=== PATIENT | female | born 1975 | race Caucasian/White ===

== ENCOUNTER 2019-10-18 08:35 | Outpatient (CLI) | payer SELFPAY ==
[2019-10-18 09:20] LABS: Basophils % 0.4 %; Eosinophils % 0.2 %; Hematocrit 35.7 % (37.0-47.0); Hemoglobin 12.2 g/dL (11.5-15.3); Lymphocytes # 2.8 10^3/uL (0.8-4.8); Lymphocytes % 31.1 %; Mean Corpuscular HGB Conc 34.2 g/dL (30.0-36.0); Mean Corpuscular Volume 87.7 fL (81-99); Mean Platelet Volume 10.6 fL (7.4-10.4); Monocytes # 0.5 10^3/uL (0.2-0.9); Monocytes % 5.7 %; Neutrophils # 5.6 10^3/uL (1.8-7.7); Neutrophils % 62.4 %; Nucleated Red Blood Cells % 0 %; Platelet Count 267 10^3/cmm (130-400); Red Blood Count 4.07 10^6/uL (4.1-5.3); Red Cell Distribution Width 12.1 % (12.1-15.1)
--- NOTE | 2019-10-21 11:34 | ONC FU_ITS ---
Dr. Rosario Patient Follow-Up Note Patient: Willi Saldana Unit #: [id number]: 1975 Dicatated By: Marlon Rosario M.D.Date of Visit:Oct 18, 2019 Onc Med Follow-up/Prog Note Chief Complaint: Deep vein thrombosis. History of Present Illness: This is a 44 year-old woman with deep vein thrombosis of the right leg. On 05/29/2019 she had presented to the emergency room with pain and swelling in her right leg. Venous Doppler showed features of deep vein thrombosis involving the right popliteal and peroneal veins with subtotal occlusion. Also noted were features of thrombosis, felt to be possibly acute, involving segments of the greater saphenous vein both above and below the knee with extension into the saphenofemoral junction. She was treated with a apixaban 10 mg twice a day for 7 days followed by 5 mg twice a day. I had seen her initially on 07/09/2019. The swelling in the right leg had improved, though she still had some pain and aching in the leg. She complained of being more fatigued since she was taking the apixaban, and she also had been having more frequent migraine headaches. She had no bleeding manifestations other than some hemorrhoidal bleeding, which wasn't new. She indicated that she had been taking an oral contraceptive for the preceding 10 years, and that 3 months prior to the episode it had been changed to a different preparation. The oral contraceptive was stopped at the diagnosis of the deep vein thrombosis. She had additional risk factor of a 26-year history of smoking, previously a pack of cigarettes or more per day. She had cut down to less than 1/2 pack per day. She has no prior history of thromboembolism. Her had a significant family history in that a sister had with pulmonary embolism. Her thrombophilia evaluation showed normal ATIII activity and normal protein C and S levels. A study for APC resistance was requested, but apparently not performed. Her anticardiolipin antibodies were negative. Her prothrombin gene mutation analysis showed one copy of the 54235A>G variant, which has been reported to carry an increased risk of thrombosis when observed in conjuction with the 33028W>A FII variant. Her other medical illnesses include hypothyroidism and fibromyalgia. She has a history of hypoglycemia, a hstory of diverticulitis, and a history of C. difficile colitis. She has anxiety/depression. She has cut down her smoking. She is seen for a followup visit. She continues to complain that she is super tired. She is working part-time. She still has some pain and aching in her right leg. She has been having a little more hemorrhoidal bleeding. She does not complain of shortness of breath. She sometimes has chest pain. She has been having more frequent migraines headaches. She says her nervres are shot. Medications: Calcium 1 Tablet (of 500 mg) Oral daily, Cholecalciferol 1 Tablet (of 88006 Units) Oral daily, Eliquis 1 Tablet (of 5 mg) Oral b.i.d., EQL Fish Oil 1 Capsule (of 1000 mg) Oral daily, Garlic 1 Capsule (of 1000 mg) Oral daily, Levothyroxine Sodium 1 Tablet (of 125 mcg) Oral daily, L-Lysine 1 Tablet (of 500 mg) Oral daily, lobelia 2 Drop(s) Liquid PRN, lomatium 28 Drop(s) Liquid Oral daily, Magnesium 1 Tablet (of 500 mg) Oral daily, Meloxicam 1 Tablet (of 15 mg) Oral daily, Multivitamin Adults 1 Tablet Oral daily, Potassium 1 Tablet (of 99 mg) Oral daily, primrose oil 1 Capsule Oral daily, Probiotic 1 Capsule Oral, Sertraline HCl 1 Tablet (of 50 mg) Oral daily, Vitamin A 1 Capsule (of 500 Units) Oral daily, Vitamin B12 2 Capsule (of 500 mg) Oral daily Allergies: Biaxin and Lidocaine HCl. Review of Systems: Constitutional - She has been feeling super tired. She has good appetite. She has not had fever or night sweating. She feels cold. ECOG score is 1, ENMT - No sinus congestion/drainage. No mouth sores. No sore throat or difficulty swallowing, Hematologic/Lymphatic - No abnormal bruising, Respiratory - She does not complain of shortness of breath. She has just very occasional cough. No hemoptysis, Cardiovascular - She sometimes has chest pain. No palpitations, Gastrointestinal - She has nausea and she has acid reflux. No diarrhea or constipation. She has been having a little more bleeding from hemorrhoids, Genitourinary (F) - No dysuria or hematuria. No urinary frequency. She sometimes has has hesitancy with urination. She sometimes has urgency, Musculoskeletal - She sometimes has pain in her arms, Integumentary - No skin rash or other skin changes, Neurologic - She has been having more migraine headaches. She sometimes has dizziness. She has numbness/tingilng in her feet, Psychiatric - She has anxiety/depression. She says her nerves are shot. She has difficulty sleeping. Vital Signs: Performed on Oct 18, 2019 09:29 Height - 65.00 in Weight - 222.4 lbs (HIGH) BSA - 2.07 sq.m BMI - 37.01 (HIGH) Temperature - 97.5 F (LOW) Pulse - 78 /min Respiration - 24 /min BP - 148/86 mm(hg) (HIGH) O2 Sat - 99 % Pain - 8 Physical Examination: Constitutional - She looks pretty good generally, Eyes - Sclerae nonicteric. Conjunctivae clear, ENMT - No lesions noted in the oral cavity, Hematologic/Lymphatic - No cervical, clavicular, or axillary adenopathy, Respiratory - Lungs sound clear, Cardiovascular - Heart rhythm is regular. There is a I/ systolic murmur. There is no gallop or rub noted, Abdomen - Mildly distended and generally tender, but soft. Liver and spleen are not enlarged. There is no abdominal mass or ascites noted and there is no inguinal adenopathy, Extremities - No edema. Calves appear symmttric and they feel soft, Neurologic - No focal neurologic deficits noted. Lab/Imaging: Test performed on Oct 18, 2019 08:45 WBC 9.0 10 3/uL RBC 4.07 10 6/uL HGB 12.2 g/dL HCT 35.7 % MCV 87.7 fL MCH 30.0 pg MCHC 34.2 g/dL RDW 12.1 % Platelet Count 267 10 3/cmm MPV 10.6 fL Neutrophils 5.6 10 3/uL Lymphocytes 2.8 10 3/uL Monocytes 0.5 10 3/uL Eosinophils 0.0 10 3/uL Basophils 0.0 10 3/uL Neutrophil % 62.4 % Lymphocyte % 31.1 % Monocyte % 5.7 % Eosinophil % 0.2 % Basophils % 0.4 % Impression: 1. Patient with acute deep vein thrombosis of the right leg diagnosed in May 2019. This was considered a provoked DVT, as it occurred in association with oral contraceptive use. She had additional risk factor of smoking. 2. She had clinical improvement on treatment with apixaban. 3. She has a positive family history for thromboembolism. Her other medical illnesses include: 4. Hypothyroidism. 5. Hypoglycemia. 6. Fibromyalgia. 7. She has a history of diverticulitis. 8. She has a history of Clostridium difficile colitis. 9. Anxiety/depression. Her thrombophilia evaluation was unrevealing except for the prothrombin gene mutation analysis which showed one copy of the 46398M>G variant. It has been reported to carry an increased risk of thrombosis when observed in conjuction with the 26592X>A FII variant, but it is not by itself a known thrombophilia risk. An APC resistance study was requested, but apparently not performed. Plan: She is recommended to complete 6 months of anticoagulation with full-dose apixaban. I will see her again in 1 month with a repeat venous Doppler, and we will determine at that time whether to stop anticoagulation completely or transition to a maintenance dosage. The APC resistance study will need to be done, and if positive she will need to be tested for the factor V Leiden mutation. Signed By: Marlon Rosario M.D. <<Signature on File>>
== END 2019-10-18 08:36 | disposition home or self-care (01) ==
LOC: ONCMED 08:37
PROVIDERS: Family Provider Family Medicine; PCP Family Medicine; Visit Provider Internal Medicine Medical Oncology
DX: I82.401 Acute embolism and thrombosis of unspecified deep veins of right lower extremity (principal); E03.9 Hypothyroidism, unspecified; M79.7 Fibromyalgia; F41.8 Other specified anxiety disorders; F17.210 Nicotine dependence, cigarettes, uncomplicated; K64.8 Other hemorrhoids; G43.909 Migraine, unspecified, not intractable, without status migrainosus; E16.2 Hypoglycemia, unspecified; Z79.01 Long term (current) use of anticoagulants; Z79.899 Other long term (current) drug therapy
CPT/HCPCS: 85025; 99214

== ENCOUNTER 2019-10-24 14:13 | Outpatient (CLI) | payer SELFPAY | END 2019-10-24 14:14 | disposition home or self-care (01) | LOC: ONCMED 14:14 | PROVIDERS: Family Provider Family Medicine; PCP Family Medicine; Visit Provider Internal Medicine Medical Oncology | DX: Z01.89 Encounter for other specified special examinations (principal) ==

== ENCOUNTER 2019-11-04 15:48 | Outpatient (CLI) | payer SELFPAY | END 2019-11-04 15:49 | disposition home or self-care (01) | LOC: ONCMED 15:49 | PROVIDERS: Family Provider Family Medicine; PCP Family Medicine; Visit Provider Internal Medicine Medical Oncology | DX: D68.51 Activated protein C resistance (principal) | CPT/HCPCS: 36415; 81241 ==

== ENCOUNTER 2019-11-21 14:47 | Outpatient (CLI) | payer SELFPAY ==
--- NOTE | 2019-11-21 15:00 | USCV_ITS ---
Willi Saldana Age: 44 Gender: F : 1975 Exam Date: 11/21/2019 14:55 Ordering Phys: Marlon Rosario MD Technologist: Nereyda Marsh Exam Location: [facility] – [place] Indication: right leg pain HISTORY: Lower extremity pain. PROCEDURES: Examined bilaterally were the greater saphenous, common femoral, femoral, profunda, popliteal, posterior tibial veins, and peroneal trunk. FINDINGS: Persistent SVT noted in the GSV at area. No DVT in any vessel visualized at this time. CONCLUSIONS Persistent SVT in the GSV at [facility] in mid thigh No DVT RLLibra Hester MD (Electronically Signed) Final Date: 21 November 2019 16:07 Amended: 22 November 2019 16:44 C
== END 2019-11-21 14:48 | disposition home or self-care (01) ==
LOC: ONCMED 14:48
PROVIDERS: Family Provider Family Medicine; PCP Family Medicine; Visit Provider Internal Medicine Medical Oncology
DX: M79.604 Pain in right leg (principal); Z86.718 Personal history of other venous thrombosis and embolism
CPT/HCPCS: 93971

== ENCOUNTER 2020-02-28 09:20 | Outpatient (CLI) | payer SELFPAY ==
--- NOTE | 2020-02-28 18:52 | ONC FU_ITS ---
Dr. Rosario Patient Follow-Up Note Patient: Willi Saldana Unit #: [id number]: 1975 Dicatated By: Marlon Rosario M.D.Date of Visit:Feb 28, 2020 Onc Med Follow-up/Prog Note Chief Complaint: Deep vein thrombosis. History of Present Illness: This is a 44 year-old woman with deep vein thrombosis of the right leg. She was found to be heterozygous for the factor V Leiden mutation. On 05/29/2019 she had presented to the emergency room with pain and swelling in her right leg. Venous Doppler showed features of deep vein thrombosis involving the right popliteal and peroneal veins with subtotal occlusion. Also noted were features of thrombosis, felt to be possibly acute, involving segments of the greater saphenous vein both above and below the knee with extension into the saphenofemoral junction. She was treated with a apixaban 10 mg twice a day for 7 days followed by 5 mg twice a day. I had seen her initially on 07/09/2019. The swelling in the right leg had improved, though she still had some pain and aching in the leg. She complained of being more fatigued since she was taking the apixaban, and she also had been having more frequent migraine headaches. She had no bleeding manifestations other than some hemorrhoidal bleeding, which wasn't new. She indicated that she had been taking an oral contraceptive for the preceding 10 years, and that 3 months prior to the episode it had been changed to a different preparation. The oral contraceptive was stopped at the diagnosis of the deep vein thrombosis. She had additional risk factor of a 26-year history of smoking, previously a pack of cigarettes or more per day. She had cut down to less than 1/2 pack per day. She has no prior history of thromboembolism. Her had a significant family history in that a sister had with pulmonary embolism. Her thrombophilia evaluation showed normal ATIII activity and normal protein C and S levels. A study for APC resistance was requested, but apparently not performed. Her anticardiolipin antibodies were negative. Her prothrombin gene mutation analysis showed one copy of the 94235I>G variant, which has been reported to carry an increased risk of thrombosis when observed in conjuction with the 53244K>A FII variant. As the APC resistance study was not performed, I went ahead and requested a factor V Leiden mutation study, which was positive for one copy of the factor V Leiden variant. With that finding, I had recommended that she consider long-term or than short-term anticoagulation. Her other medical illnesses include hypothyroidism and fibromyalgia. She has a history of hypoglycemia, a hstory of diverticulitis, and a history of C. difficile colitis. She has anxiety/depression. She had cut down her smoking. INTERIM HISTORY: During follow-up she began having side effects with the apixaban at the 5 mg dosage. Her anticoagulation was then transition to rivaroxaban, which she also had multiple side effects. She then went back to apixaban, and just less than 1 month ago she began a trial of therapy with dabigatran. She is seen for a follow-up visit. She is had multiple side effects attributable to dabigatran, including fatigue and headache. She says she just has not been feeling good generally. She is still able to do some light work. Her appetite is not as good, but her weight is stable. She has not had fever. She does have hot flashes and sweating. She does not complain of shortness of breath, cough, or chest pain. She has been having nausea and she has been having a lot of acid reflux since she has been on the dabigatran. She has diarrhea intermittently. Her bladder function has not been very good, she sometimes has difficulty voiding. She has been having more pain and she also complains of having muscle cramps in her legs. She has numbness in her feet. Medications: Calcium 1 Tablet (of 500 mg) Oral daily, Cholecalciferol 1 Tablet (of 83284 Units) Oral daily, EQL Fish Oil 1 Capsule (of 1000 mg) Oral daily, Garlic 1 Capsule (of 1000 mg) Oral daily, Levothyroxine Sodium 1 Tablet (of 125 mcg) Oral daily, L-Lysine 1 Tablet (of 500 mg) Oral daily, lobelia 2 Drop(s) Liquid PRN, lomatium 28 Drop(s) Liquid Oral daily, Magnesium 1 Tablet (of 500 mg) Oral daily, Meloxicam 1 Tablet (of 15 mg) Oral daily, Multivitamin Adults 1 Tablet Oral daily, Potassium 1 Tablet (of 99 mg) Oral daily, primrose oil 1 Capsule Oral daily, Probiotic 1 Capsule Oral, Sertraline HCl 1 Tablet (of 50 mg) Oral daily, Vitamin A 1 Capsule (of 500 Units) Oral daily, Vitamin B12 2 Capsule (of 500 mg) Oral daily Allergies: Biaxin, Lidocaine HCl, and Xarelto. Review of Systems: Constitutional - She has fatigue, but she is able to do light work. Appetite is not so good. Her weight is stable. No fever. She has hot flashes and sweating. ECOG score is 1, ENMT - She has a little bit of sinus drainage. No mouth sores. No sore throat or difficulty swallowing, Hematologic/Lymphatic - No abnormal bruising or bleeding, Respiratory - No shortness of breath. No cough. No pleuritic pain or hemoptysis, Cardiovascular - No angina pain. No palpitations, Gastrointestinal - She has nausea and she has a lot of acid reflux. She has diarrhea. No blood in the stool or black stools, Genitourinary (F) - She sometimes has difficutly voiding. No dysuria or hematuria. No urinary frequency. No urgency or incontinence, Musculoskeletal - She has more pain. She has been having muscle cramps in her legs, Integumentary - No skin rash, Neurologic - She has been having headaches and she has dizziness. She has numbness in her feet. No other focal neurologic symptoms, Psychiatric - She has anxiety/depression. No insomnia. Vital Signs: Performed on Feb 28, 2020 09:46 Height - 65.00 in Weight - 225.6 lbs (HIGH) BSA - 2.08 sq.m BMI - 37.54 (HIGH) Temperature - 97.4 F (LOW) Pulse - 71 /min Respiration - 24 /min BP - 143/90 mm(hg) (HIGH) O2 Sat - 98 % Pain - 7 Physical Examination: Constitutional - She looks pretty good generally, Eyes - Sclerae nonicteric. Conjunctivae clear, ENMT - No lesions noted in the oral cavity, Hematologic/Lymphatic - No cervical, clavicular, or axillary adenopathy, Respiratory - Lungs sound clear, Cardiovascular - Heart rhythm is regular. There is no murmur,gallop, or rub noted, Abdomen - Soft. Liver and spleen are not enlarged. There is no abdominal mass or ascites noted and there is no inguinal adenopathy, Extremities - No edema, Neurologic - No focal neurologic deficits noted. Impression: 1. Patient with acute deep vein thrombosis of the right leg diagnosed in May 2019. This was considered a provoked DVT, as it occurred in association with oral contraceptive use. 2. Her thrombophilia evaluation showed heterozygosity for the factor V Leiden mutation. Her other medical illnesses include: 3. Hypothyroidism. 4. Hypoglycemia. 5. Fibromyalgia. 6. She has a history of diverticulitis. 7. She has a history of Clostridium difficile colitis. 8. Anxiety/depression. With the thrombophilia evaluation showing heterozygosity for the factor V Leiden mutation, she was recommended to consider long-term rather than short-term anticoagulation. The main issue is that she has had difficulty tolerating the medications, including apixaban, rivaroxaban, and more recently dabigatran. There has been no evidence, though, for any further thromboembolism. Plan: I discussed several options for her further management. As we really do not know to what extent, if any, the factor V Leiden mutation may have contributed to her thrombosis, one option is to stop anticoagulation, as she has completed more than 6 months of treatment. The other option now would be the possibility of transitioning to a maintenance dosage of apixaban, which she did seem to tolerate better than the other medications. She prefers the latter, so she will now restart apixaban at 2.5 mg twice daily. She will continue it indefinitely as long as she tolerates it with acceptable side effects and she has no further thrombosis. Signed By: Marlon Rosario M.D. <<Signature on File>>
== END 2020-02-28 09:21 | disposition home or self-care (01) ==
LOC: ONCMED 09:25
PROVIDERS: PCP Family Medicine; Visit Provider Internal Medicine Medical Oncology
DX: D68.51 Activated protein C resistance (principal); Z86.718 Personal history of other venous thrombosis and embolism; E03.9 Hypothyroidism, unspecified; E16.2 Hypoglycemia, unspecified; M79.7 Fibromyalgia; F41.8 Other specified anxiety disorders; Z87.19 Personal history of other diseases of the digestive system; Z79.01 Long term (current) use of anticoagulants
CPT/HCPCS: 99214

== ENCOUNTER 2020-05-23 20:57 | Emergency (ER) | payer SELFPAY ==
[2020-05-23 21:08] VITALS: BP 153/96; PULSE 96; RESP 18; TEMP 37.3; O2SAT 97; BMI 37.0
--- NOTE | 2020-05-23 21:32 | W.ED.HA ---
HPI - Headache General: Chief Complaint: Headache Stated Complaint: HEADACHE Time Seen by Provider: 05/23/20 21:17 Source: patient Mode of arrival: ambulatory Limitations: no limitations History of Present Illness: HPI Narrative: Patient is a 44-year-old female who presents to ED today with complaint of a headache over the past 3 weeks. Patient tells me she has no history or diagnosis of migraine headaches. She states sometimes she will get headaches when she becomes fatigued or dehydrated but nothing that has persisted this long. She tells me the headache is constant with intermittent exacerbations in severity. She is complaining of some blurry vision. She tells me she was seen by PCP approximately a week ago and given IM Toradol which did not help. She states she has been trying Tylenol and Midol which will give her minimal relief but nothing has fully ever taken away her headache. She is continuing to eat and drink normally. She has not had any episodes of altered mental status, slurred speech, facial drooping, or any other neurological symptoms. No new medications. MD elicited complaint: headache Onset (ago): week(s) Exacerbating factors: none Relieving factors: other (tylenol/midol) Associated symptoms: Deny chest pain, confusion, fever(s), malaise, nausea, rash or vomiting Review of Systems Const: Denies: fever(s), chills, body aches, fatigue or malaise Eyes: Reports: blurry vision; Denies: change in vision, photophobia, eye discharge, floaters or seeing flashes ENMT: Denies: odynophagia Card: Denies: chest pain, palpitations or irregular heart rhythm Resp: Denies: dyspnea GI: Denies: abdominal pain, nausea, vomiting or diarrhea : Denies: flank pain, difficulty voiding, dysuria, urinary frequency, urinary urgency or urinary hesitancy Musc: Denies: neck pain or back pain Skin/Breast: Denies: rash Neuro: Reports: headache(s); Denies: numbness in extremities, weakness in extremities, sensory changes, lack of coordination, difficulty walking, frequent falls, dizziness, vertigo, confusion or Slurred speech present [facility] ED PFSH: Medical History (Updated 05/23/20 @ 23:39 by KWABENA Staley) DVT (deep vein thrombosis) in Fibromyalgia Hypothyroidism Family History Mother CAD (coronary artery disease) Blood clot in vein Hyperlipidemia Diabetes Anemia Hypertension Stroke Myocardial infarct Father Blood clot in vein CAD (coronary artery disease) Stroke COPD (chronic obstructive pulmonary disease) Sister Asthma Migraine Social History Smoking and tobacco status: current every day smoker cigarettes Packs smoked per day: 0.5 Years cigarettes smoked: 26 Alcohol intake: former Marital status: Number of children: 2 Female Reproductive History: Date of last menstrual period: 05/09/20 Physical Exam Const: COMMON NORMALS: no acute distress, average body habitus, patient oriented x3, no limitations, healthy appearing, alert and well nourished ORIENTATION/CONSCIOUSNESS: Yes oriented to person, Yes oriented to place and Yes oriented to time HENMT: COMMON NORMALS: normocephalic, atraumatic, hearing grossly normal bilaterally, EAC's normal and TM's normal bilaterally HEAD & SCALP: normal to inspection, normocephalic and atraumatic FACE & SINUS: normal facial exam and sinuses nontender EXTERNAL AUDITORY CANAL: EAC's normal TYMPANIC MEMBRANE: TM's normal bilaterally THROAT: posterior oropharynx normal, tonsils normal and uvula midline Eye: COMMON NORMALS: Equal, round and reactive pupils present, EOMs intact bilaterally, conjunctivae normal and no scleral icterus GENERAL EYE: appearance normal, both eyes and all related structures CONJUNCTIVA: Yes conjunctivae normal PUPIL: Yes Equal, round and reactive pupils present Neck/C-Spine: COMMON NORMALS: full ROM, no lymphadenopathy and no meningeal signs Resp: COMMON NORMALS: normal respiratory effort and clear to auscultation bilaterally AUSCULTATION: clear to auscultation bilaterally Cardio: COMMON NORMALS: regular rate and regular rhythm RATE: regular rate RHYTHM: regular rhythm Neuro: EVIN COMA SCALE: document GCS findings [place] coma scale eye opening: Spontaneous [place] coma scale verbal response: Orientated [place] coma scale motor response: Obey commands [place] coma scale total score: 15 COMMON NORMALS: patient oriented x3 SENSORIUM/ORIENTATION: Yes alert, Yes oriented to person, Yes oriented to place and Yes oriented to time MENINGEAL SIGNS: Yes no meningeal signs Skin: COMMON NORMALS: no rashes or lesions noted GENERAL SKIN EXAM: no rashes or lesions noted Course Vital Signs: Vital signs: Vital Signs Temperature 99.1 F 05/23/20 21:08 Pulse Rate 96 05/23/20 21:08 Respiratory Rate 18 05/23/20 21:08 Blood Pressure 153/96 05/23/20 21:08 Pulse Oximetry 97 05/23/20 21:08 MDM - Headache MDM Narrative: Medical decision making narrative: Patient reports GRAHAM improving with medications. She has been playing games on her cell phone the whole visit. She is stable to follow up with her primary care provider. Return to ED precautions given. Lab Data: Labs: Lab Results 05/23/20 05/23/20 05/23/20 Range/Units 22:00 22:00 22:00 WBC 7.9 (4.0-10.0) 10^3/ uL RBC 4.34 (4.1-5.3) 10^6/u L Hgb 12.7 (11.5-15.3) g/dL Hct 38.3 (37.0-47.0) % MCV 88.2 (81-99) fL MCH 29.3 (28.0-34.0) pg MCHC 33.2 (30.0-36.0) g/dL RDW 12.9 (12.1-15.1) % Plt Count 274 (130-400) 10^3/c mm MPV 10.0 (7.4-10.4) fL Neut % (Auto) 67.6 % Lymph % (Auto) 26.7 % [place] % (Auto) 4.9 % Eos % (Auto) 0.0 % Baso % (Auto) 0.5 % Neut # (Auto) 5.36 (1.8-7.7) 10^3/u L Lymph # (Auto) 2.1 (0.8-4.8) 10^3/u L [place] # (Auto) 0.4 (0.2-0.9) 10^3/u L Eos # (Auto) 0.0 (0.0-0.8) 10^3/u L Baso # (Auto) 0.0 (0.0-0.1) 10^3/u L Nucleated RBC % (a uto) 0 % Nucleated RBCs # 0.0 /100WBC Sodium 139 (136-145) mmol/L Potassium 4.0 (3.5-5.1) mmol/L Chloride 102 (98-107) mmol/L Carbon Dioxide 27 (22-29) mmol/L Anion Gap 14.0 (5-19) BUN 20 (6-20) mg/dL Creatinine 0.6 (0.5-0.9) mg/dL GFR Calculation 107.6 (90-130) mL/min Glucose 115 (65-115) mg/dL Calculated Osmolal ity 292 (285-295) mOsm/k g Calcium 9.1 (8.5-10.5) mg/dL Total Bilirubin 0.2 (0.15-1.2) mg/dL AST 20 (0-32) U/L ALT 23 (0-33) U/L Alkaline Phosphata se 71 (35-105) IU/L Total Protein 7.4 (6.6-8.7) g/dL Albumin 4.4 (3.5-5.2) g/dL Globulin 3.0 (1.3-4.6) g/dL TSH 1.14 (0.27-4.20) uIU/ mL HCG, Qual Negative (Negative) Imaging Data^: CT Head: Radiologist's impression: [place] [address] CT Scan Report Signed Patient: Willi Saldana Unit #: [id number] : 1975 Age/Sex: 44 / F ADM Date: 05/23/20 Loc: ER Room/Bed: Attending Dr: Ordering Provider/Ordering MD: Harriet Khanna Date of Service: 05/23/20 Procedure(s): CT head wo con* [id number] Accession Number(s): [id number] Report Number: [id number] PROCEDURE INFORMATION: Exam: CT Head Without Contrast Exam date and time: 05/23/2020 9:34 PM Age: 44 years old Clinical indication: Pain; Headache not specified; Patient HX: C/O GRAHAM x 3 weeks; Additional info: Headaches TECHNIQUE: Imaging protocol: Computed tomography of the head without contrast. Radiation optimization: All CT scans at this facility use at least one of these dose optimization techniques: automated exposure control; mA and/or kV adjustment per patient size (includes targeted exams where dose is matched to clinical indication); or iterative reconstruction. COMPARISON: No relevant prior studies available. RADIATION DOSE METRICS: Total DLP (mGy-cm): 731.84 FINDINGS: Brain: Normal. No hemorrhage. Unremarkable white matter. No mass effect. Ventricles: No ventriculomegaly. Bones/joints: Unremarkable. No acute fracture. Paranasal sinuses: Visualized sinuses are unremarkable. No fluid levels. Mastoid air cells: Visualized mastoid air cells are well aerated. Soft tissues: Unremarkable. Other findings: Examination is limited secondary to motion artifact. CT/CT head wo con* [id number] IMPRESSION: No acute intracranial findings. Radiation Dose CTDIVOL = (mGy): DLP = 731.84 (mGy-cm) Dictated By: Pollo Sosa MD Signed By: Pollo Sosa MD Signed Date/Time: 05/23/202155 DD/ 53 Discharge Plan Discharge Patient Disposition: Home Clinical Impression: Headache, migraine Qualifiers: Migraine type: without aura Status migrainosus presence: with status migrainosus Intractability: not intractable Qualified Code(s): G43.001 - Migraine without aura, not intractable, with status migrainosus Condition: Stable Prescriptions: No Action sertraline 50 mg tablet 50 mg PO Q24H RF: 0 meloxicam 15 mg tablet 15 mg PO DAILY RF: 0 levothyroxine 125 mcg capsule 125 mcg PO DAILY RF: 0 alprazolam 0.5 mg tablet 0.5 mg PO DIRECTED PRNRF: 0 Eliquis 5 mg tablet 5 mg PO BID RF: 0 Chantix 1 mg tablet 1 mg PO BID RF: 0 Discharge Orders: Discharge Order (Routine); Ordered 05/23/20 Ordered By: Harriet Khanna Referrals: Naz Carlin MD [Primary Care Provider] - Patient Instructions: Headache - Migraine (Adult), Migraine Headache (ED) Activity Restrictions/Additional Instructions: As discussed please follow-up with your primary care provider for further management of your headaches. They may elect to refer you to neurology. Coding Level of Care Code ED Towel Stretcher for Chg Fwd Exam Comprehensive
[2020-05-23 22:08] LABS: Basophils % 0.5 %; Hematocrit 38.3 % (37.0-47.0); Hemoglobin 12.7 g/dL (11.5-15.3); Lymphocytes # 2.1 10^3/uL (0.8-4.8); Lymphocytes % 26.7 %; Mean Corpuscular HGB Conc 33.2 g/dL (30.0-36.0); Mean Corpuscular Hemoglobin 29.3 pg (28.0-34.0); Mean Corpuscular Volume 88.2 fL (81-99); Monocytes # 0.4 10^3/uL (0.2-0.9); Monocytes % 4.9 %; Neutrophils # 5.36 10^3/uL (1.8-7.7); Neutrophils % 67.6 %; Nucleated Red Blood Cells % 0 %; Platelet Count 274 10^3/cmm (130-400); Red Blood Count 4.34 10^6/uL (4.1-5.3); Red Cell Distribution Width 12.9 % (12.1-15.1); White Blood Count 7.9 10^3/uL (4.0-10.0)
[2020-05-23 22:19] LABS: HCG, Serum Qual Negative (Negative)
[2020-05-23 22:35] LABS: Alanine Aminotransferase 23 U/L (0-33); Albumin Level 4.4 g/dL (3.5-5.2); Alkaline Phosphatase 71 IU/L (35-105); Aspartate Amino Transferase 20 U/L (0-32); Blood Urea Nitrogen 20 mg/dL (6-20); Calcium 9.1 mg/dL (8.5-10.5); Carbon Dioxide 27 mmol/L (22-29); Chloride 102 mmol/L (98-107); Glomerular Filtration Rate 107.6 mL/min (90-130); Glucose 115 mg/dL (65-115); Osmolality Calculated 292 mOsm/kg (285-295); Sodium 139 mmol/L (136-145); Thyroid Stimulating Hormone 1.14 uIU/mL (0.27-4.20); Total Bilirubin 0.2 mg/dL (0.15-1.2); Total Protein 7.4 g/dL (6.6-8.7)
[2020-05-23] MEDS: dexamethasone 10 mg/mL INJ 8 MG IV (22:50)
[2020-05-23] MEDS: diphenhydrAMINE 50 mg/mL SDV 1mL IVP (23:09)
[2020-05-23] MEDS: ondansetron 2 mg/ML SDV 2 mL 4 MG IVP (23:09)
[2020-05-23] MEDS: sodium chloride 0.9% 1,000 ML 999 ML IV (23:10)
[2020-05-23 23:53] VITALS: BP 157/89; PULSE 78; RESP 18; O2SAT 98
== END 2020-05-23 23:54 | disposition home or self-care (01) ==
PROVIDERS: Emergency Provider Physician Assistant; PCP Family Medicine
DX: G43.001 Migraine without aura, not intractable, with status migrainosus (principal); Z79.01 Long term (current) use of anticoagulants; F17.210 Nicotine dependence, cigarettes, uncomplicated
CPT/HCPCS: 12345; 70450; 80053; 84443; 84703; 85025; 96365; 96375; 99282; 99284; J1100; J1200; J2405; J7030

== ENCOUNTER 2020-06-04 11:53 | Outpatient (CLI) | payer SELFPAY ==
--- NOTE | 2020-06-04 11:55 | MR_ITS ---
WS: [id number] MRI BRAIN WITH AND WITHOUT CONTRAST HISTORY: HEADACHE COMPARISON: CT head 05/23/2020 TECHNIQUE: Multiplanar imaging performed through the brain with Prohance 17 ml's IV. No acute infarcts are seen. Villa-white matter differentiation is well preserved. No susceptibility artifacts or prior lacunar infarcts. Ventricles and extra-axial spaces are normal. Clivus and pituitary gland are normal. Visualized posterior fossa and brainstem are also normal. Postcontrast images are negative for masses or vascular malformations. Dural venous sinuses are normal. Paranasal sinuses: Well aerated with no significant disease. Mastoid air cells: Normal. Calvarium and scalp: Normal. MR/MR head wo/w con [id number] IMPRESSION: 1. Normal MRI brain with contrast.
== END 2020-06-04 11:54 | disposition home or self-care (01) ==
LOC: RADSHAW 11:54
PROVIDERS: PCP Nurse Practitioner Family; Visit Provider Nurse Practitioner Family
DX: R51.9 Headache, unspecified (principal)
CPT/HCPCS: 70553; A9579

== ENCOUNTER 2020-06-22 15:49 | Outpatient (CLI) | payer SELFPAY ==
[2020-06-22 17:16] LABS: Free T4 Free Thyroxine 1.02 ng/dL (0.82-1.77); T3 Free 3.1 PG/ML (2.0-4.4); Thyroid Stimulating Hormone 1.74 uIU/mL (0.27-4.20)
[2020-06-23 14:27] LABS: Thyroid Peroxidase Antobodies <1 IU/mL (<9)
== END 2020-06-22 15:50 | disposition home or self-care (01) ==
LOC: LAB 15:52
PROVIDERS: PCP Nurse Practitioner Family; Visit Provider Nurse Practitioner Family
DX: R94.6 Abnormal results of thyroid function studies (principal)
CPT/HCPCS: 36415; 84439; 84443; 84481; 86376

== ENCOUNTER 2020-07-20 17:31 | Emergency (ER) | payer SELFPAY ==
[2020-07-20 17:42] VITALS: BP 162/100; PULSE 80; RESP 18; TEMP 36.7; O2SAT 97; BMI 36.6
[2020-07-20 18:18] VITALS: O2SAT 97
--- NOTE | 2020-07-20 18:28 | XR_ITS ---
WS: [id number] Exam: XR chest 1V portable [id number] Date/Time of Exam: 07/20/2020 6:51 PM Reason For Exam: CHEST PAIN No previous exams. Findings: The lungs are clear and fully expanded. Costophrenic angles are sharp. No infiltrates. Bronchovascula r relief appears normal. Cardiac silhouette is unremarkable. Bony elements are intact. XR/XR chest 1V portable [id number] IMPRESSION: Unremarkable chest radiograph.
--- NOTE | 2020-07-20 18:29 | ECG_ITS ---
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 Measurements Intervals [place] Rate: 81 P: 19 NM: 125 QRS: 47 QRSD: 96 T: 46 QT: 365 QTc: 424 Interpretive Statements SINUS RHYTHM POSSIBLE RIGHT VENTRICULAR CONDUCTION DELAY [RSR (QR) IN V1/V2] No previous ECG available for comparison Electronically Signed On 07-21-2020 21:46:33 SOAP PRESS FEEDER by Valerie Gandhi M.D. [id number] f
--- NOTE | 2020-07-20 19:06 | ED_ITS ---
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 The dose of Eliquis was changed 2 weeks ago from 2.5 mg twice daily to 5 mg twice daily. She said that since then she has had daily episodes of chest pain, intermittent, left-sided and radiates down her left arm. When she called her primary care provider today they advised her to come to the emergency department. complaint: chest pain Pertinent past history: other (DVT, activated protein C resistance) Onset (ago): week(s) (2) Timing of current episode: episodic Prior episodes: Yes Onset: during rest Pain location: left chest Pain radiation: left arm Severity: mild Quality: heaviness Relieving factors: nothing Exacerbating factors: nothing Associated symptoms: Reports dyspnea and nausea; Deny abdominal pain, diaphoresis, fever(s), leg edema, palpitations, sense of impending doom, syncope or vomiting Treatment prior to arrival: none Review of Systems General: Reports: 10 or more systems reviewed and unremarkable except in HPI and below Const: Denies: fever(s) or diaphoresis Eyes: Denies: change in vision or blurry vision ENMT: Denies: throat pain, enlarged tonsils, odynophagia, hoarseness, mouth pain or swelling of lips/tongue Card: Denies: palpitations or syncope Resp: Reports: dyspnea GI: Reports: nausea; Denies: abdominal pain or vomiting : Denies: flank pain, difficulty voiding, dysuria, urinary frequency, urinary urgency or urinary hesitancy Musc: Denies: neck pain, back pain or extremity swelling Skin/Breast: Denies: rash, pruritus or erythema Neuro: Denies: headache(s), numbness in extremities or weakness in extremities Endo: Denies: polyuria, polydipsia or tired all the time PFS ED PFSH: Medical History (Reviewed 07/20/20 @ 19:12 by Carmen Miranda MD, [facility]) DVT (deep vein thrombosis) in Fibromyalgia Hypothyroidism Family History (Reviewed 07/20/20 @ 19:12 by Carmen Miranda MD, [facility]) Mother CAD (coronary artery disease) Blood clot in vein Hyperlipidemia Diabetes Anemia Hypertension Stroke Myocardial infarct Father Blood clot in vein CAD (coronary artery disease) Stroke COPD (chronic obstructive pulmonary disease) Sister Asthma Migraine Social History (Reviewed 07/20/20 @ 19:12 by Carmen Miranda MD, [facility]) Smoking and tobacco status: current every day smoker cigarettes Packs smoked per day: 0.5 Years cigarettes smoked: 26 Alcohol intake: former Marital status: Number of children: 2 Female Reproductive History: Date of last menstrual period: 07/04/20 Physical Exam Const: COMMON NORMALS: no acute distress, average body habitus, patient oriented x3, no limitations, healthy appearing, alert and well nourished HENMT: COMMON NORMALS: normocephalic, atraumatic and moist oral mucous membranes HEAD & SCALP: normocephalic and atraumatic Neck/C-Spine: COMMON NORMALS: no meningeal signs and no JVD Chest: COMMONS NORMALS: normal inspection of the chest and normal palpation of entire chest wall Resp: COMMON NORMALS: normal respiratory effort, No retractions, No use of accessory muscles, clear to auscultation bilaterally and percussion normal AUSCULTATION: clear to auscultation bilaterally PERCUSSION: percussion normal Cardio: COMMON NORMALS: no JVD, regular rate, regular rhythm, S1 normal heart sound present, S2 normal heart sound present, No gallops present (Cardio), No clicks present (Cardio), No murmurs present (Cardio), No rub (Cardio) and Peripheral pulses 2+ throughout RATE: regular rate RHYTHM: regular rhythm HEART SOUNDS: S1 normal heart sound present and S2 normal heart sound present PERIPHERAL PULSES: Peripheral pulses 2+ throughout GI: COMMON NORMALS: Normal to inspection, nondistended, normoactive bowel sounds present, Soft to palpation, non-tender, No hepatosplenomegaly present, no masses and no bruits PALPATION: Yes Soft to palpation and Yes No hepatosplenomegaly present Extremity: COMMON NORMALS: normal to inspection, full ROM, capillary refill normal, no calf tenderness and no pedal edema Neuro: COMMON NORMALS: patient oriented x3 SENSORIUM/ORIENTATION: Yes alert MENINGEAL SIGNS: Yes no meningeal signs Skin: COMMON NORMALS: no rashes or lesions noted, no wounds, turgor normal, no jaundice, no petechiae and no mottling GENERAL SKIN EXAM: no rashes or lesions noted and turgor normal Course Reevaluation(s): Reevaluation #1: Discussed her lab and imaging findings with her. Negative for acute findings. Negative high-sensitivity troponin x2. Negative D-dimer. She will be discharged home to follow-up with her primary care provider. She voiced understanding and is in agreement with the plan. Time: 22:00 Vital Signs: Vital signs: Vital Signs Temperature 98.0 F 07/20/20 17:42 Pulse Rate 78 07/20/20 22:06 Respiratory Rate 20 H 07/20/20 22:06 Blood Pressure 124/86 07/20/20 22:06 Pulse Oximetry 97 07/20/20 22:06 MDM - Chest Pain MDM Narrative: Medical decision making narrative: 44-year-old female patient with chest pain. Evaluation in the emergency department was negative for cardiac cause for her pain. Evaluation was unremarkable with negative D-dimer and negative high-sensitivity troponin x2. She has activated protein C resistance and is on Eliquis anticoagulation. She is discharged home to follow- up with her primary care provider Medical Records: Attestation: I reviewed the patient's medical records. Lab Data: Attestation: I reviewed the patient's lab results. Labs: Lab Results 07/20/20 07/20/20 07/20/20 Range/Units 18:47 18:47 18:47 WBC 8.2 (4.0-10.0) 10^3/ uL RBC 4.17 (4.1-5.3) 10^6/u L Hgb 12.3 (11.5-15.3) g/dL Hct 37.5 (37.0-47.0) % MCV 89.9 (81-99) fL MCH 29.5 (28.0-34.0) pg MCHC 32.8 (30.0-36.0) g/dL RDW 12.5 (12.1-15.1) % Plt Count 276 (130-400) 10^3/c mm MPV 10.5 H (7.4-10.4) fL Neut % (Auto) 63.3 % Lymph % (Auto) 30.2 % [place] % (Auto) 5.6 % Eos % (Auto) 0.0 % Baso % (Auto) 0.5 % Neut # (Auto) 5.20 (1.8-7.7) 10^3/u L Lymph # (Auto) 2.5 (0.8-4.8) 10^3/u L [place] # (Auto) 0.5 (0.2-0.9) 10^3/u L Eos # (Auto) 0.0 (0.0-0.8) 10^3/u L Baso # (Auto) 0.0 (0.0-0.1) 10^3/u L Nucleated RBC % (a uto) 0 % Nucleated RBCs # 0.0 /100WBC PT 13.60 (12.1-14.9) SECO NDS INR 1.01 (0.8-1.2) D-Dimer 0.37 (0-0.59) ug/mIFE U Sodium 141 (136-145) mmol/L Potassium 4.2 (3.5-5.1) mmol/L Chloride 102 (98-107) mmol/L Carbon Dioxide 28 (22-29) mmol/L Anion Gap 15.2 (5-19) BUN 17 (6-20) mg/dL Creatinine 0.5 (0.5-0.9) mg/dL GFR Calculation 132.8 H (90-130) mL/min Glucose 99 (65-115) mg/dL Calculated Osmolal ity 294 (285-295) mOsm/k g Calcium 9.8 (8.5-10.5) mg/dL Total Bilirubin 0.2 (0.15-1.2) mg/dL AST 31 (0-32) U/L ALT 40 H (0-33) U/L Alkaline Phosphata se 82 (35-105) IU/L Troponin T Baselin e (0-10) ng/L Troponin T 120 Min [place] (0-10) ng/L Delta Troponin T (0-10) ABS# NT-Pro-B Natriuret Pep 62 (0-125) pg/mL Total Protein 7.0 (6.6-8.7) g/dL Albumin 4.7 (3.5-5.2) g/dL Globulin 2.3 (1.3-4.6) g/dL 07/20/20 07/20/20 Range/Units 18:47 20:45 WBC (4.0-10.0) 10^3/ uL RBC (4.1-5.3) 10^6/u L Hgb (11.5-15.3) g/dL Hct (37.0-47.0) % MCV (81-99) fL MCH (28.0-34.0) pg MCHC (30.0-36.0) g/dL RDW (12.1-15.1) % Plt Count (130-400) 10^3/c mm MPV (7.4-10.4) fL Neut % (Auto) % Lymph % (Auto) % [place] % (Auto) % Eos % (Auto) % Baso % (Auto) % Neut # (Auto) (1.8-7.7) 10^3/u L Lymph # (Auto) (0.8-4.8) 10^3/u L [place] # (Auto) (0.2-0.9) 10^3/u L Eos # (Auto) (0.0-0.8) 10^3/u L Baso # (Auto) (0.0-0.1) 10^3/u L Nucleated RBC % (a uto) % Nucleated RBCs # /100WBC PT (12.1-14.9) SECO NDS INR (0.8-1.2) D-Dimer (0-0.59) ug/mIFE U Sodium (136-145) mmol/L Potassium (3.5-5.1) mmol/L Chloride (98-107) mmol/L Carbon Dioxide (22-29) mmol/L Anion Gap (5-19) BUN (6-20) mg/dL Creatinine (0.5-0.9) mg/dL GFR Calculation (90-130) mL/min Glucose (65-115) mg/dL Calculated Osmolal ity (285-295) mOsm/k g Calcium (8.5-10.5) mg/dL Total Bilirubin (0.15-1.2) mg/dL AST (0-32) U/L ALT (0-33) U/L Alkaline Phosphata se (35-105) IU/L Troponin T Baselin e 6 (0-10) ng/L Troponin T 120 Min [place] 6.00 (0-10) ng/L Delta Troponin T 0 (0-10) ABS# NT-Pro-B Natriuret Pep (0-125) pg/mL Total Protein (6.6-8.7) g/dL Albumin (3.5-5.2) g/dL Globulin (1.3-4.6) g/dL Imaging Data^: CXR: Attestation: I personally reviewed and interpreted this imaging study as follows: Radiologist's impression: [address] [place] [address] XRay Report Signed Patient: Darrel Saldana #: [id number] : 1975Acct#:[id number] Age/Sex: 44 / FADM Date: 07/20/20 [facility] Attending Dr: Ordering Provider/Ordering MD: Carmen Miranda MD, [facility] Date of Service: 07/20/20 Procedure(s): XR chest 1V portable [id number] Accession Number(s): [id number] Report Number: [id number] WS: [id number] Exam: XR chest 1V portable [id number] Date/Time of Exam: 07/20/2020 6:51 PM Reason For Exam: CHEST PAIN No previous exams. Findings: The lungs are clear and fully expanded. Costophrenic angles are sharp. No infiltrates. Bronchovascular relief appears normal. Cardiac silhouette is unremarkable. Bony elements are intact. XR/XR chest 1V portable [id number] IMPRESSION: Unremarkable chest radiograph. Dictated By:Santy Sorto DO Signed By:Emanuel Kerr Date/Time:07/21/20942 DD/ 1 EKG Data^: EKG 1: Attestation: I personally reviewed and interpreted this EKG as follows: EKG interpretation date: 07/20/20 EKG interpretation time: 17:43 Prior EKG tracings: not available for review Interpretation: Normal sinus rhythm. Heart rate 81 bpm. Right ventricular conduction delay. No ST changes. EKG 2: Attestation: I personally reviewed and interpreted this EKG as follows: EKG interpretation date: 07/20/20 EKG interpretation time: 20:35 Prior EKG tracings: available for review Interpretation: Sinus rhythm. Heart rate 76 bpm. Right ventricular conduction delay. No ST changes. Unchanged from earlier today. Discharge Plan Discharge Patient Disposition: Home Clinical Impression: Non-cardiac chest pain Condition: Stable Prescriptions: Continued meloxicam 15 mg tablet 15 mg PO DAILY RF: 0 levothyroxine 125 mcg capsule 125 mcg PO DAILY RF: 0 alprazolam 0.5 mg tablet 0.5 mg PO BID PRN (Reason: Anxiety) RF: 0 Eliquis 5 mg tablet 5 mg PO BID RF: 0 Discharge Orders: Discharge Order (Routine); Ordered 07/20/20 Ordered By: Carmen Miranda Referrals: RASHMI SANCHEZ FNP [Primary Care Provider] - 1-3 days Discharge Diet: Usual diet Discharge Activity: Increase activity as tolerated Patient Instructions: Noncardiac Chest Pain (ED) Activity Restrictions/Additional Instructions: Return for any new or worsening symptoms. Follow-up with your primary care provider and your drawing in hand within 3 days. Continue your home medications. Coding Level of Care Code ED Traveling Buyer for Chg Fwd Exam Comprehensive
[2020-07-20 19:11] VITALS: BP 152/107; PULSE 81; RESP 21; O2SAT 97
[2020-07-20 19:16] LABS: Basophils % 0.5 %; Hematocrit 37.5 % (37.0-47.0); Hemoglobin 12.3 g/dL (11.5-15.3); Lymphocytes # 2.5 10^3/uL (0.8-4.8); Lymphocytes % 30.2 %; Mean Corpuscular HGB Conc 32.8 g/dL (30.0-36.0); Mean Corpuscular Hemoglobin 29.5 pg (28.0-34.0); Mean Corpuscular Volume 89.9 fL (81-99); Mean Platelet Volume 10.5 fL (7.4-10.4); Monocytes # 0.5 10^3/uL (0.2-0.9); Monocytes % 5.6 %; Neutrophils % 63.3 %; Nucleated Red Blood Cells % 0 %; Platelet Count 276 10^3/cmm (130-400); Red Blood Count 4.17 10^6/uL (4.1-5.3); Red Cell Distribution Width 12.5 % (12.1-15.1); White Blood Count 8.2 10^3/uL (4.0-10.0)
[2020-07-20 19:40] LABS: Troponin(5th) Baseline 6 ng/L (0-10)
[2020-07-20 19:47] LABS: Alanine Aminotransferase 40 U/L (0-33); Albumin Level 4.7 g/dL (3.5-5.2); Alkaline Phosphatase 82 IU/L (35-105); Anion Gap 15.2 (5-19); Aspartate Amino Transferase 31 U/L (0-32); Blood Urea Nitrogen 17 mg/dL (6-20); Calcium 9.8 mg/dL (8.5-10.5); Carbon Dioxide 28 mmol/L (22-29); Chloride 102 mmol/L (98-107); Globulin 2.3 g/dL (1.3-4.6); Glomerular Filtration Rate 132.8 mL/min (90-130); Glucose 99 mg/dL (65-115); NT Pro B Type Natriuretic Pept 62 pg/mL (0-125); Osmolality Calculated 294 mOsm/kg (285-295); Potassium 4.2 mmol/L (3.5-5.1); Sodium 141 mmol/L (136-145); Total Bilirubin 0.2 mg/dL (0.15-1.2)
[2020-07-20 20:02] VITALS: BP 141/86; PULSE 77; RESP 18; O2SAT 98
[2020-07-20 20:17] LABS: INR 1.01 (0.8-1.2)
[2020-07-20 20:19] LABS: D Dimer 0.37 ug/mIFEU (0-0.59)
--- NOTE | 2020-07-20 20:29 | ECG_ITS ---
[facility] Test Date: 2020-07-20 Pat Name: Willi Saldana Department: Room: Gender: Female Landscaping Specialist: : 1975 Requested By: Carmen Miranda I Order Number: [id number] Eric MD: Valerie Gandhi M.D. Measurements Intervals [place] Rate: 76 P: -5 [place]: 119 QRS: 52 QRSD: 98 T: 40 QT: 403 QTc: 454 Interpretive Statements SINUS RHYTHM WITH SHORT [place] INTERVAL POSSIBLE RIGHT VENTRICULAR CONDUCTION DELAY [RSR (QR) IN V1/V2] No previous ECG available for comparison Electronically Signed On 07-21-2020 21:59:25 CLIENT SERVER PROGRAMMER by Valerie Gandhi M.D. [id number]
[2020-07-20 21:10] LABS: Troponin 5 2HR Delta 0 ABS# (0-10)
[2020-07-20 21:54] VITALS: BP 134/101; PULSE 77; RESP 17; O2SAT 98
[2020-07-20 22:06] VITALS: BP 124/86; PULSE 78; RESP 20; O2SAT 97
== END 2020-07-20 22:14 | disposition home or self-care (01) ==
PROVIDERS: Emergency Provider Family Medicine; PCP Nurse Practitioner Family
DX: R07.89 Other chest pain (principal); Z79.01 Long term (current) use of anticoagulants; D68.51 Activated protein C resistance; Z86.718 Personal history of other venous thrombosis and embolism; E03.9 Hypothyroidism, unspecified
CPT/HCPCS: 12345; 71045; 80053; 83880; 84484; 85025; 85378; 85610; 93005; 99283

== ENCOUNTER → 2020-08-20 10:27 | Outpatient (BNVA) | payer SELFPAY | PROVIDERS: PCP Nurse Practitioner Family; Visit Provider Specialist | DX: G43.709 Chronic migraine without aura, not intractable, without status migrainosus (principal); F17.210 Nicotine dependence, cigarettes, uncomplicated | CPT/HCPCS: 99204 ==

== ENCOUNTER 2020-09-11 13:21 | Outpatient (CLI) | payer SELFPAY ==
--- NOTE | 2020-09-11 13:31 | USCV_ITS ---
Willi Saldana Age: 45 Gender: F : 1975 Exam Date: 09/11/2020 13:38 Ordering Phys: RASHMI SANCHEZ Technologist: Mariya Stone Exam [place] [facility] [place]: HISTORY: Venous insufficiency PROCEDURES: Right duplex Venous Insufficiency study of the Deep and Superficial systems was carried out according to normal protocol with the patient in supine positon for deep system and dependent position for the superficial system. FINDINGS: There is no evidence of bilateral deep vein thrombosis. No evidence of superficial thrombosis in the bilateral saphenous system. Reflux is demonstrated in the deep venous system at the level of the RIGHT Popliteal. Venous reflux is demonstrated in the RIGHT greater saphenous vein with a spectral Doppler display of greater than 500 milliseconds at the prox, mid and distal levels. No venous reflux noted in the RIGHT small saphenous vein. Patient states that she has a clotting disorder. CONCLUSIONS 1. No evidence of DVT in the above-mentioned identifiable veins, on the right side. 2. Significant venous reflux of greater than 500 ms were noted at the proximal, mid, distal and below-knee segments of the greater saphenous vein on the right side. These venous segments were more than 1 cm deep and there found to have a diameter of 0.23, 0.27, 0.23 and 0.31 cm respectively. The reflex time was 2.0 to 2.74 seconds at the body levels and a 0.694-second at the below-knee level. 3. Significant venous reflux of greater than 1000 ms(3.13 sec) was noted in the right popliteal vein as well. No similar previous studies are available for comparison Dr Sameer Madera MD [facility] (Electronically Signed) Final Date: 11 September 2020 17:14 S
== END 2020-09-11 13:22 | disposition home or self-care (01) ==
PROVIDERS: PCP Nurse Practitioner Family; Visit Provider Nurse Practitioner Family
DX: I87.2 Venous insufficiency (chronic) (peripheral) (principal)
CPT/HCPCS: 93971

== ENCOUNTER 2020-09-28 13:30 | Outpatient (CLI) | payer SELFPAY ==
--- NOTE | 2020-10-02 18:50 | ONC FU_ITS ---
Dr. Rosario Patient Follow-Up Note Patient: Willi Saldana Unit #: [id number]: 1975 Dicatated By: Marlon Rosario M.D.Date of Visit:Sep 28, 2020 Onc Med Follow-up/Prog Note Chief Complaint: Deep vein thrombosis. History of Present Illness: This is a 44 year-old woman with deep vein thrombosis of the right leg. She was found to be heterozygous for the factor V Leiden mutation. On 05/29/2019 she had presented to the emergency room with pain and swelling in her right leg. Venous Doppler showed features of deep vein thrombosis involving the right popliteal and peroneal veins with subtotal occlusion. Also noted were features of thrombosis, felt to be possibly acute, involving segments of the greater saphenous vein both above and below the knee with extension into the saphenofemoral junction. She was treated with a apixaban 10 mg twice a day for 7 days followed by 5 mg twice a day. I had seen her initially on 07/09/2019. The swelling in the right leg had improved, though she still had some pain and aching in the leg. She complained of being more fatigued since she was taking the apixaban, and she also had been having more frequent migraine headaches. She had no bleeding manifestations other than some hemorrhoidal bleeding, which wasn't new. She indicated that she had been taking an oral contraceptive for the preceding 10 years, and that 3 months prior to the episode it had been changed to a different preparation. The oral contraceptive was stopped at the diagnosis of the deep vein thrombosis. She had additional risk factor of a 26-year history of smoking, previously a pack of cigarettes or more per day. She had cut down to less than 1/2 pack per day. She has no prior history of thromboembolism. Her had a significant family history in that a sister had with pulmonary embolism. Her thrombophilia evaluation showed normal ATIII activity and normal protein C and S levels. A study for APC resistance was requested, but apparently not performed. Her anticardiolipin antibodies were negative. Her prothrombin gene mutation analysis showed one copy of the [id number] variant, which has been reported to carry an increased risk of thrombosis when observed in conjuction with the 39062V>A FII variant. As the APC resistance study was not performed, I went ahead and requested a factor V Leiden mutation study, which was positive for one copy of the factor V Leiden variant. With that finding, I had recommended that she consider long-term or than short-term anticoagulation. Her other medical illnesses include hypothyroidism and fibromyalgia. She has a history of hypoglycemia, a hstory of diverticulitis, and a history of C. difficile colitis. She has anxiety/depression. She had cut down her smoking. INTERIM HISTORY: During follow-up she began having side effects with the apixaban at the 5 mg dosage, and she subsequently tried dabigatran, both of which caused side effects. I had seen her for a follow-up visit in February 2020. I discussed several options and at that point she decided to go back on apixaban at the maintenance dosage of 2.5 mg twice daily. However, she developed bad migraines at that dosage, and she ultimately felt better taking 5 mg twice daily. She continued to have pain and swelling in her right leg. A duplex venous insufficiency study of the deep and superficial systems of the right leg on 09/11/2020 showed significant reflux at the proximal, mid, distal and below-knee segments of the greater saphenous vein on the right side. There was also significant venous reflux noted in the right popliteal vein. There was no evidence of deep vein thrombosis. She is seen now for a follow-up visit. She complains that she has no energy. She is able to do some light work. ECOG score is 1. Appetite is been okay. She has not had fever. She does have sweating if she overdoes it. She says her vision has been more blurry. She has shortness of breath with activity. She does not complain of cough. She was having chest pain when she first went back to the 5 mg apixaban dosage, but that subsequently resolved. She occasionally has nausea. She reports having a lot of acid reflux. Bowel function has been okay. Her bladder function is variable. She has generalized aching with the fibromyalgia. She has continued to have some headaches and she sometimes has dizziness. She has numbness in her hands and toes. She has seen a neurologist who recommended Topamax. She has been having more anxiety, she stopped taking sertraline. She is now just using alprazolam as needed. Medications: Butalbital-Acetaminophen 1 Tablet (of 25-325 mg) Oral daily PRN, Calcium 1 Tablet (of 500 mg) Oral daily, Cholecalciferol 1 Tablet (of 36705 Units) Oral daily, Eliquis 1 Tablet (of 5 mg) Oral b.i.d., EQL Fish Oil 1 Capsule (of 1000 mg) Oral daily, Garlic 1 Capsule (of 1000 mg) Oral daily, Levothyroxine Sodium 1 Tablet (of 125 mcg) Oral daily, L-Lysine 1 Tablet (of 500 mg) Oral daily, lobelia 2 Drop(s) Liquid PRN, lomatium 28 Drop(s) Liquid Oral daily, Magnesium 1 Tablet (of 500 mg) Oral daily, Meloxicam 1 Tablet (of 15 mg) Oral daily, Multivitamin Adults 1 Tablet Oral daily, Potassium 1 Tablet (of 99 mg) Oral daily, primrose oil 1 Capsule Oral daily, Probiotic 1 Capsule Oral, Propranolol HCl 1 Tablet (of 20 mg) Oral t.i.d., Vitamin A 1 Capsule (of 500 Units) Oral daily, Vitamin B12 2 Capsule (of 500 mg) Oral daily Allergies: Biaxin, Lidocaine HCl, and Xarelto. Vital Signs: Performed on Sep 28, 2020 13:36 Height - 65.00 in Weight - 241.6 lbs (HIGH) BSA - 2.14 sq.m BMI - 40.20 (HIGH) Temperature - 97.2 F (LOW) Pulse - 93 /min Respiration - 20 /min BP - 146/107 mm(hg) (HIGH) O2 Sat - 97 % Pain - 6 Physical Examination: Constitutional - She looks pretty good generally, Eyes - Sclerae nonicteric. Conjunctivae clear, ENMT - No lesions noted in the oral cavity, Hematologic/Lymphatic - No cervical, clavicular, or axillary adenopathy, Respiratory - Lungs sound clear, Cardiovascular - Heart rhythm is regular. There is no murmur,gallop, or rub noted, Abdomen - Soft. Liver and spleen are not enlarged. There is no abdominal mass or ascites noted and there is no inguinal adenopathy, Extremities - Slight edema. There are mild venous stasis changes on the right. Calf circumference is symmetric, measuring 44 cm on both sides, Neurologic - No focal neurologic deficits noted. Problem List: 1. Acute deep vein thrombosis of the right leg diagnosed in May 2019. This was considered a provoked DVT, as it occurred in association with oral contraceptive use. 2. Her thrombophilia evaluation showed heterozygosity for the factor V Leiden mutation. 3. Hypothyroidism. 4. Hypoglycemia. 5. Fibromyalgia. 6. GERD. 7. She has a history of diverticulitis. 8. She has a history of Clostridium difficile colitis. 9. Anxiety/depression. Problems Addressed with this Encounter and Plan: 1. Patient with a history of deep vein thrombosis of the right leg diagnosed in May 2019. It was considered to have been a provoked DVT, as it occurred in association with oral contraceptive use. Her thrombophilia evaluation showed heterozygosity for the factor V Leiden mutation. It is uncertain to what extent that may have been a factor in the cause of her thrombosis, but she has opted to continue long-term anticoagulation. Treatment has been problematic due to poor tolerance for numerous anticoagulants. At present she has continued apixaban at 5 mg twice daily. She has developed evidence of venous insufficiency in the right leg, but there has been no evidence for recurrent thrombosis. As such, she will continue the apixaban at the same dosage. 2. She is having significant acid reflux symptoms. She will be given a prescription for famotidine 20 mg twice daily. 3. She has symptoms which are very suspicious for obstructive sleep apnea. She had a sleep study number of years ago which showed only mild obstructive sleep apnea. She thinks it was not an accurate study. Does need to be repeated, I will try and get that scheduled. Signed By: Marlon Rosario M.D. <<Signature on File>>
== END 2020-09-28 13:31 | disposition home or self-care (01) ==
PROVIDERS: PCP Nurse Practitioner Family; Visit Provider Internal Medicine Medical Oncology
DX: Z86.718 Personal history of other venous thrombosis and embolism (principal); Z79.01 Long term (current) use of anticoagulants; D68.51 Activated protein C resistance; G47.33 Obstructive sleep apnea (adult) (pediatric); K21.9 Gastro-esophageal reflux disease without esophagitis; Z79.899 Other long term (current) drug therapy
CPT/HCPCS: 99214

== ENCOUNTER → 2020-09-30 13:27 | Outpatient (BNVA) | payer SELFPAY | PROVIDERS: PCP Nurse Practitioner Family; Visit Provider Nurse Practitioner | DX: G43.709 Chronic migraine without aura, not intractable, without status migrainosus (principal); F17.210 Nicotine dependence, cigarettes, uncomplicated | CPT/HCPCS: 99213 ==

== ENCOUNTER 2020-10-24 21:43 | Emergency (ER) | payer SELFPAY ==
[2020-10-24 21:48] VITALS: BP 137/86; PULSE 127; RESP 25; TEMP 36.7; O2SAT 97; BMI 38.2
[2020-10-24 22:02] VITALS: BP 131/78; PULSE 110; RESP 18; O2SAT 98
[2020-10-24 22:24] LABS: Basophils % 0.4 %; Hematocrit 41.4 % (37.0-47.0); Hemoglobin 13.9 g/dL (11.5-15.3); Lymphocytes # 0.4 10^3/uL (0.8-4.8); Lymphocytes % 3.7 %; Mean Corpuscular HGB Conc 33.6 g/dL (30.0-36.0); Mean Corpuscular Hemoglobin 28.9 pg (28.0-34.0); Mean Corpuscular Volume 86.1 fL (81-99); Mean Platelet Volume 10.3 fL (7.4-10.4); Monocytes # 0.4 10^3/uL (0.2-0.9); Monocytes % 3.4 %; Neutrophils # 10.34 10^3/uL (1.8-7.7); Neutrophils % 92.2 %; Nucleated Red Blood Cells % 0 %; Platelet Count 280 10^3/cmm (130-400); Red Blood Count 4.81 10^6/uL (4.1-5.3); Red Cell Distribution Width 12.7 % (12.1-15.1); White Blood Count 11.2 10^3/uL (4.0-10.0)
[2020-10-24] MEDS: ondansetron 2 mg/ML SDV 2 mL 4 MG IVP (22:38)
[2020-10-24 22:39] LABS: Alanine Aminotransferase 33 U/L (0-33); Albumin Level 4.5 g/dL (3.5-5.2); Alkaline Phosphatase 97 IU/L (35-105); Anion Gap 19.2 (5-19); Aspartate Amino Transferase 23 U/L (0-32); Blood Urea Nitrogen 19 mg/dL (6-20); C Reactive Protein 23.9 mg/L (0.0-4.9); Calcium 9.2 mg/dL (8.5-10.5); Carbon Dioxide 25 mmol/L (22-29); Chloride 97 mmol/L (98-107); Globulin 3.5 g/dL (1.3-4.6); Glomerular Filtration Rate 89.7 mL/min (90-130); Glucose 157 mg/dL (65-115); Lipase 14 U/L (13-60); Osmolality Calculated 290 mOsm/kg (285-295); Potassium 4.2 mmol/L (3.5-5.1); Sodium 137 mmol/L (136-145); Total Bilirubin 0.6 mg/dL (0.15-1.2)
[2020-10-24] MEDS: sodium chloride 0.9% 1,000 ML 999 ML IV (22:39)
[2020-10-24 22:41] VITALS: BP 104/71; PULSE 108; O2SAT 98
--- NOTE | 2020-10-24 23:13 | W.ED.NAVMDI ---
HPI - Nausea/Vomiting/Diarrhea General: Chief complaint: Nausea/Vomiting/Diarrhea Stated complaint: n/v/d Time Seen by Provider: 10/24/20 23:12 Source: patient Mode of arrival: ambulatory Limitations: no limitations History of Present Illness: HPI Narrative: Patient is a 45-year-old female who presents to ED today with a complaint of nausea, vomiting, diarrhea that began around 4 PM this evening. Patient tells me she has had 5-6 episodes of non-bloody emesis and 5-6 episodes of non-bloody diarrhea. Patient denies any bad food exposures. She states she has two family members that recently were ill with similar symptoms. She has not been running fevers. She does not complain of abdominal pain. She states she feels dehydrated and lightheaded. Denies urinary symptoms. MD elicited complaint: nausea, vomiting and diarrhea Onset (ago): hour(s) Associated nausea: Yes Associated abdominal pain: No Location of pain: None Exacerbating factors: eating Relieving factors: none Associated symtoms: Reports no associated symptoms and nausea; Denies change in vision, chest pain, dysuria, fatigue, headache(s), palpitations or syncope Review of Systems Const: Denies: fever(s), chills, body aches or fatigue Eyes: Denies: change in vision, blurry vision or photophobia ENMT: Denies: odynophagia, nasal discharge or nasal congestion Card: Reports: lightheadedness; Denies: chest pain, palpitations, irregular heart rhythm, edema, syncope or pre-syncope Resp: Denies: dyspnea GI: Reports: nausea, vomiting and diarrhea; Denies: abdominal pain, hematemesis, heartburn, hematochezia, melena or white/light colored stool : Denies: flank pain or dysuria Musc: Denies: neck pain or back pain Skin/Breast: Denies: rash Neuro: Denies: headache(s), numbness in extremities, weakness in extremities or sensory changes PFS ED PFSH: Medical History DVT (deep vein thrombosis) in Fibromyalgia Hypothyroidism Family History Mother CAD (coronary artery disease) Blood clot in vein Hyperlipidemia Diabetes Anemia Hypertension Stroke Myocardial infarct Father Blood clot in vein CAD (coronary artery disease) Stroke COPD (chronic obstructive pulmonary disease) Sister Asthma Migraine Social History Smoking and tobacco status: current every day smoker cigarettes Packs smoked per day: 0.5 Years cigarettes smoked: 26 Alcohol intake: former Marital status: Number of children: 2 Female Reproductive History: Date of last menstrual period: 07/04/20 Physical Exam Const: COMMON NORMALS: no acute distress, average body habitus, patient oriented x3, no limitations, healthy appearing, alert and well nourished GENERAL APPEARANCE: cooperative and other (odorous ) ORIENTATION/CONSCIOUSNESS: Yes awake, Yes oriented to person, Yes oriented to place and Yes oriented to time HENMT: COMMON NORMALS: normocephalic and atraumatic HEAD & SCALP: normocephalic and atraumatic Resp: COMMON NORMALS: normal respiratory effort and clear to auscultation bilaterally AUSCULTATION: clear to auscultation bilaterally Cardio: COMMON NORMALS: regular rate and regular rhythm RATE: regular rate RHYTHM: regular rhythm GI: COMMON NORMALS: Normal to inspection, nondistended, normoactive bowel sounds present, Soft to palpation, No hepatosplenomegaly present and no masses PALPATION: Yes Soft to palpation, Yes Tenderness to palpation present (GI) (mild tenderness diffusely-non surgical abdomen ) and Yes No hepatosplenomegaly present Extremity: COMMON NORMALS: normal to inspection and no pedal edema Neuro: EVIN COMA SCALE: document GCS findings [place] coma scale eye opening: Spontaneous [place] coma scale verbal response: Orientated [place] coma scale motor response: Obey commands [place] coma scale total score: 15 COMMON NORMALS: patient oriented x3, CN's II-XII intact bilaterally, moves all extremities, no focal motor deficits and no sensory deficits noted SENSORIUM/ORIENTATION: Yes alert, Yes oriented to person, Yes oriented to place and Yes oriented to time Skin: COMMON NORMALS: no rashes or lesions noted and turgor normal GENERAL SKIN EXAM: no rashes or lesions noted and turgor normal Course Vital Signs: Vital signs: Vital Signs Temperature 98.1 F 10/24/20 21:48 Pulse Rate 108 H 10/25/20 01:08 Respiratory Rate 18 10/25/20 00:44 Blood Pressure 123/70 10/25/20 01:08 Pulse Oximetry 97 10/25/20 01:08 MDM - Nausea/Vomiting/Diarrhea MDM Narrative: Medical decision making narrative: Patient clinically appears well. She has not had any episodes of vomiting or diarrhea while here. Her abdomen is nonsurgical. White count is scantly elevated at 11.2. She has been tachycardic throughout her stay. Heart rate on orthostatics however only increases 5 bpm. She has 2+ urine ketones. She was given a bag of fluids. She has no evidence for sepsis. History and symptoms are consistent with gastroenteritis. Recommend conservative management at home and continuing to push fluids. Strict return to ED precautions given. Lab Data: Labs: Lab Results 10/24/20 10/24/20 10/25/20 Range/Units 22:05 22:05 00:00 WBC 11.2 H (4.0-10.0) 10^3/ uL RBC 4.81 (4.1-5.3) 10^6/u L Hgb 13.9 (11.5-15.3) g/dL Hct 41.4 (37.0-47.0) % MCV 86.1 (81-99) fL MCH 28.9 (28.0-34.0) pg MCHC 33.6 (30.0-36.0) g/dL RDW 12.7 (12.1-15.1) % Plt Count 280 (130-400) 10^3/c mm MPV 10.3 (7.4-10.4) fL Neut % (Auto) 92.2 % Lymph % (Auto) 3.7 % [place] % (Auto) 3.4 % Eos % (Auto) 0.0 % Baso % (Auto) 0.4 % Neut # (Auto) 10.34 H (1.8-7.7) 10^3/u L Lymph # (Auto) 0.4 L (0.8-4.8) 10^3/u L [place] # (Auto) 0.4 (0.2-0.9) 10^3/u L Eos # (Auto) 0.0 (0.0-0.8) 10^3/u L Baso # (Auto) 0.0 (0.0-0.1) 10^3/u L Nucleated RBC % (a uto) 0 % Nucleated RBCs # 0.0 /100WBC Sodium 137 (136-145) mmol/L Potassium 4.2 (3.5-5.1) mmol/L Chloride 97 L (98-107) mmol/L Carbon Dioxide 25 (22-29) mmol/L Anion Gap 19.2 H (5-19) BUN 19 (6-20) mg/dL Creatinine 0.7 (0.5-0.9) mg/dL GFR Calculation 89.7 L (90-130) mL/min Glucose 157 H (65-115) mg/dL Calculated Osmolal ity 290 (285-295) mOsm/k g Calcium 9.2 (8.5-10.5) mg/dL Total Bilirubin 0.6 (0.15-1.2) mg/dL AST 23 (0-32) U/L ALT 33 (0-33) U/L Alkaline Phosphata se 97 (35-105) IU/L C-Reactive Protein 23.9 H (0.0-4.9) mg/L Total Protein 8.0 (6.6-8.7) g/dL Albumin 4.5 (3.5-5.2) g/dL Globulin 3.5 (1.3-4.6) g/dL Lipase 14 (13-60) U/L Urine Color Yellow (Yellow) Urine Appearance Clear (CLEAR) Urine pH 7 (5-7) Ur Specific Gravit y 1.010 (1.005-1.030) Urine Protein Neg (Negative) Urine Glucose (UA) Norm (Normal) Urine Ketones 2+ H (Negative) Urine Blood Neg (Negative) Urine Nitrate Negative (Negative) Urine Bilirubin 1+ H (Negative) Urine Urobilinogen Norm (Negative) mg/dL Ur Leukocyte Lanie ase Negative (Negative) Discharge Plan Discharge Patient Disposition: Home Clinical Impression: Gastroenteritis Condition: Stable Prescriptions: New Zofran 4 mg tablet 4 mg PO Q6H PRN (Reason: nausea and vomiting) Qty: 14 RF: 0 No Action meloxicam 15 mg tablet 15 mg PO DAILY RF: 0 levothyroxine 125 mcg capsule 125 mcg PO DAILY RF: 0 alprazolam 0.5 mg tablet 0.5 mg PO BID PRN (Reason: Anxiety) RF: 0 Eliquis 5 mg tablet 5 mg PO BID RF: 0 propranolol 20 mg tablet 20 mg PO TID Qty: 90 RF: 1 Discharge Orders: Discharge ED (Routine); Ordered 10/25/20 Ordered By: Harriet Khanna Referrals: Amy Tee [facility] [employer] [Primary Care Provider] - Patient Instructions: Gastroenteritis (ED), Acute Nausea and Vomiting (ED), Opioid Safety Activity Restrictions/Additional Instructions: [facility] is committed to fighting the nationwide opiate epidemic. We are providing ALL patients with information regarding opiate safety. If you received opiate pain medication during your stay or if you received a prescription for opiate pain medication-please review this handout. If not, you may disregard. Thank you. Return to the emergency department for continued repetitive episodes of vomiting or diarrhea, blood in your vomit or diarrhea, severe abdominal pain, fevers, extreme lightheadedness, passing out episodes, or any other concerns you may have. Coding Level of Care Code ED Police Communications Dispatcher for Sary Fwd Exam Comprehensive
[2020-10-24 23:20] VITALS: BP 113/77; BP 125/92; BP 138/80; PULSE 108; PULSE 113; PULSE 115
[2020-10-24 23:36] VITALS: BP 111/67; PULSE 105; O2SAT 96
[2020-10-25 00:20] LABS: Add Urine Microscopic? NO
[2020-10-25 00:21] LABS: Glucose Urine UA Norm (Normal); Protein Urine Neg (Negative); Urine Appearance Clear (CLEAR); Urine Color Yellow (Yellow); pH Urine 7 (5-7)
[2020-10-25 00:22] LABS: Bilirubin Urine 1+ (Negative); Blood Urine Neg (Negative); Ketones Urine 2+ (Negative); Leukocyte Esterase Urine Negative (Negative); Nitrate Urine Negative (Negative); Urobilinogen Urine Norm (Negative)
[2020-10-25 00:44] VITALS: BP 100/61; PULSE 76; RESP 18; O2SAT 94
[2020-10-25 01:05] VITALS: BP 123/70; PULSE 111; O2SAT 96
[2020-10-25 01:08] VITALS: BP 123/70; PULSE 108; O2SAT 97
== END 2020-10-25 01:10 | disposition home or self-care (01) ==
PROVIDERS: Emergency Medicine; Emergency Provider Physician Assistant; PCP Nurse Practitioner Family
DX: K52.9 Noninfective gastroenteritis and colitis, unspecified (principal); Z79.01 Long term (current) use of anticoagulants; F17.210 Nicotine dependence, cigarettes, uncomplicated
CPT/HCPCS: 80053; 81003; 83690; 85025; 86140; 96361; 96374; 96375; 99283; J2405; J7030